=== PATIENT | female | born 2000 | race Caucasian/White ===

== ENCOUNTER 2024-05-17 20:46 | Emergency (ER) | payer BC ==
[~2024-05-17] VITALS: Ht 165.1 cm; Wt 59.0 kg
[2024-05-17 20:55] VITALS: O2SAT 100
[2024-05-17] MEDS ORDERED: DIPH25CA83 PO (22:11)
[2024-05-17] MEDS ORDERED: EPIN0.3P3 IM (22:11)
[2024-05-17] MEDS ORDERED: P20 MT (22:11)
[2024-05-17] MEDS: PREDNISONE 20MG TABLET PO ONE (22:25)
[2024-05-17] MEDS: DIPHENHYDRAMINE 25MG CAPSULE PO ONE (22:26)
[2024-05-17 22:28] VITALS: BP 132/86; PULSE 80; RESP 16; TEMP 36.9; O2SAT 100
== END 2024-05-17 22:30 | disposition home or self-care (01) ==
LOC: ER 20:46
DX: T78.01XA Anaphylactic reaction due to peanuts, initial encounter (principal); Z91.010 Allergy to peanuts; Z79.899 Other long term (current) drug therapy; Y92.89 Other specified places as the place of occurrence of the external cause
CPT/HCPCS: 99283; J7512